=== PATIENT | male | born 1940 | race Caucasian/White ===

== ENCOUNTER 2019-03-01 17:26 | Inpatient (IN) | payer OTHER ==
[~2019-03-01] VITALS: Ht 172.7 cm; Wt 58.6 kg
--- NOTE | ~2019-03-01 | CON ---
[address] [address] CONSULTATION Name: AUDREYBROOKE Room: [address] IN M.R.#: [id number] Admission: 03/01/19 Attend Phys: Roque Ribera MD Discharge: Date of : 42 Report #: [id number] THIS REPORT FOR: //name// CC: Roque Colvin DICTATED BY: Macarena Talamantes [facility] DATE OF SERVICE: 03/04/2019 Please note at the time of this dictation, the patient was seen and physically examined by myself. REASON FOR CONSULTATION: Constipation and colonic thickening noted on CT. HISTORY OF PRESENT ILLNESS: This is a 78-year-old male who was recently hospitalized at [facility] for pneumonia. He was released on Thursday. He had only been home for a few days and started running a fever of 101 and also having feeling a little bit more short of breath as well. The patient also states that he has had a change in his bowel habits over the last several months and he has not had a bowel movement for 5 weeks until last evening after he was given numerous agents to help him go. He states he feels significantly better, but has not been taking anything for his bowels. He denies any bright red blood or hematochezia in his stools. He denies any nausea, vomiting or any abdominal pain at this time. He has a history of acid reflux in the past, but none here recently and no longer taking any medicine for that. He states it has been years ago that he had an EGD and colonoscopy, he believes at [facility]. We will obtain those records. He believes that he did have some colon polyps at that time. ALLERGIES: No known drug allergies. MEDICATIONS: From home include amlodipine, levothyroxine, Flomax, Lipitor, metoprolol, aspirin, clonidine, Ceftin and Flonase. PAST MEDICAL HISTORY: Currently his pneumonia, BPH, hypothyroidism, hypertension. PAST SURGICAL HISTORY: He had a left inguinal hernia repair and he has had bilateral carotids and aortofemoral bypass done in the past. SOCIAL HISTORY: He has a daughter at his bedside. He has recently quit smoking since that he has been hospitalized over the last couple of weeks and he [place] [address] CONSULTATION Name: BROOKE VENTURA Room: [address]#: [id number] Admission: 03/01/19 Attend Phys: Roque Ribera MD Discharge: Date of : 42 Report #: [id number] FAMILY HISTORY: Negative for any GI or female cancers. REVIEW OF SYSTEMS: Twelve-point review of systems is essentially negative except what is mentioned in the HPI. PHYSICAL EXAMINATION: VITAL SIGNS: Temperature 36.6, pulse 85, respirations 20, blood pressure 157/65. HEART: Regular rate and rhythm. LUNGS: Diminished, but clear. ABDOMEN: Soft, positive bowel sounds in all 4 quadrants with no masses or tenderness noted. LABORATORY DATA: Hemoglobin on admission was 11.1, it is 9.2 with white count of 6.2, platelets 195. GFR is 21. ESR is 76. PT is 11.4, INR is 1.1. LFTs are completely normal and he has a CA 19-9 and CEA that are pending. CT of the abdomen and pelvis shows abnormal colonic wall thickening throughout. IMPRESSION: 1. Constipation 5 weeks with a noted change in his bowel habits. 2. Pneumonia, improving. 3. Weight loss of 15 pounds. 4. Loss of appetite. 5. Anemia. 6. History of colon polyps. 7. Chronic kidney disease, stage 4. PLAN: 1. Obtain his records from [facility] regarding his EGD and colon today. 2. Due to his chronic kidney disease stage 4, we will trial him on senna with docusate 1 b.i.d. now that he had a large bowel movement last night to assess and see how he does. 3. Will need a colonoscopy, timing of that will depend on his pneumonia. 4. Further recommendations to be made once Dr. Shankar sees the patient later today. Thank you for allowing us to participate in this patient's care. Please do not hesitate to call with any questions in regard to this consult. By: [id number] Shankar MD /nt
[2019-03-01 17:29] VITALS: BP 189/85
[2019-03-01] MEDS ORDERED: LEVO-T100 MCG PO (17:30)
[2019-03-01] MEDS ORDERED: FLOMAX0.4 MG PO (17:30)
[2019-03-01] MEDS ORDERED: NORVASC10 MG PO (17:30)
[2019-03-01] MEDS ORDERED: ASA81BEC PO (17:31)
[2019-03-01] MEDS ORDERED: LIPITOR 20 MG T20 M1 PO (17:31)
[2019-03-01] MEDS ORDERED: METOPROLOL TART25 MG PO (17:31)
[2019-03-01] MEDS ORDERED: CATAPRES0.1 MG TRANSDERM (17:32)
[2019-03-01] MEDS ORDERED: CEFUROXIME250 MG PO (17:32)
[2019-03-01] MEDS ORDERED: FLONASE 0.05%50 MCG NARES (17:32)
[2019-03-01 17:48] LABS: ABSOLUTE BASOPHILS 0.1 thou/uL (0.0-0.2); ABSOLUTE LYMPHOCYTES 3.7 thou/uL (0.8-5.3); ABSOLUTE MONOCYTES 0.4 thou/uL (0.0-1.2); ABSOLUTE NEUTROPHILS 7.5 thou/uL (1.6-8.1); BASOPHILS 0.8 %; EOSINOPHILS 0.1 %; HEMATOCRIT 32.3 % (42.0-52.0); HEMOGLOBIN 11.1 gm/dL (14.0-18.0); LYMPHOCYTES 31.5 %; MCH 32.3 pg (26.0-34.0); MCHC 34.4 g/dL (28.0-37.0); MCV 93.8 fL (80.0-100.0); MONOCYTES 3.1 %; MPV 8.2 fl. (7.2-11.1); NUCLEATED RBCS 0 /100WBC; PLATELET COUNT* 249 thou/uL (150-400); POLYS 64.5 %; RBC 3.45 mil/uL (4.50-6.00); RDW-CV 13.2 % (10.5-14.5); WBC 11.6 thou/uL (4.0-11.0)
[2019-03-01 17:52] LABS: CALCIUM 10.3 mg/dL (8.5-10.1); CREATININE 2.9 mg/dL (0.6-1.3); POTASSIUM 3.7 mmol/L (3.5-5.1)
[2019-03-01 17:54] LABS: INR 1.1; PROTIME 11.4 Seconds (9.20-11.50)
[2019-03-01 18:00] LABS: URINE BILIRUBIN NEGATIVE (Negative); URINE BLOOD NEGATIVE (Negative); URINE CLARITY CLEAR; URINE COLOR YELLOW; URINE GLUCOSE-RANDOM NEGATIVE (Negative); URINE KETONES NEGATIVE (Negative); URINE LEUKOCYTES-REFLEX NEGATIVE (Negative); URINE NITRITE-REFLEX NEGATIVE (Negative); URINE PROTEIN 1+ (Negative); URINE SPECIFIC GRAVITY 1.015 (1.005-1.030); URINE UROBILINOGEN 0.2 E.U./dl (0.2-1.0)
[2019-03-01 18:05] LABS: ALBUMIN 2.9 g/dL (3.4-5.0); TOTAL BILIRUBIN 0.7 mg/dL (<0.1-1.0); TOTAL PROTEIN 6.9 g/dL (6.4-8.2)
[2019-03-01 18:25] LABS: INFLUENZA A ANTIGEN Negative (Negative); INFLUENZA B ANTIGEN Negative (Negative)
[2019-03-01 21:41] VITALS: BP 168/73
[2019-03-01 22:53] VITALS: BP 139/60
[2019-03-02] VITALS: BP 155/65
[2019-03-02 04:00] VITALS: BP 165/60
--- NOTE | 2019-03-02 05:18 | NUR ---
PATIENT ARRIVED ON UNIT AT APPROX 2200. ALERT AND ORIENTED TIMES FOUR. FALL RISK PRECAUTIONS IN PLACE. ORDERED BEDREST, HAVE BEEN ALLOWING HIM TO STAND AT THE SIDE OF THE BED TO USE HIS URINAL. NO COMPLAINTS OF PAIN OR DISCOMFORT NOTED. FAMILY AT BEDSIDE FOR ADMISSION. CIVIL DIVISION DEPUTY SHERIFF COMPLETED CHARTED. ALL FAMILY QUESTIONS AND CONCERNS ANSWERED. HOURLY ROUNDING COMLETED DOCUMENTED.
[2019-03-02 08:13] VITALS: BP 151/71
--- NOTE | 2019-03-02 09:52 | NUR ---
ASSUMED CARE OF PT THIS AM AROUND 714- PROP WORKER IN PLACE ORDERED, TRACING SR- UPON ASSESSMENT PT NOTED TO BED RESTING IN BED- PT A&O X4- CONTINENT OF B/B- SBA AT BED SIDE FOR TRANSFERS- LCTA, RESP EVEN AND UN-LABORED- VS, O2 SAT 97% ON RA- ABD SOFT/ROUND/NON-TENDER, BS X4 QUADS- LAST BM REPORTED X1 DAY AGO- IV NOTED TO LEFT FA INTACT, IVF INFUSSING PRESCIBED- GOOD PO INTAKE NOTED THIS AM WITH BRAKFAST- NEW CONSULT NOTED THIS AM FOR ID R/T PNA- CALL LIGHT AND PERSONAL BELONGINGS WITH IN REACH- PT DENIES ANY C/O PAIN/COMFORT- HOURLY ROUNDS IN PLACE R/T SAFETY/NEEDS-ALL NEEDS MET AT THIS TIME-WCTM
--- NOTE | 2019-03-02 10:40 | NUR ---
Pt is A&O. Resides at home with his dtr and GUSTAVO, GUSTAVO in room at bedside. Pt is normally independent. Dtr completes cooking and cleaning, Pt continues to drive. No DME. No hx of HH or SNF. Goal is home at dc, no needs anticipated. Following.
--- NOTE | 2019-03-02 11:25 | EKG ---
[place] [address] ELECTROCARDIOGRAM REPORT Name: GARETTMARILINHAL ShoemakerBROOKE Room: [address] ADM IN ..#: [id number] Admission: 03/01/19 Attend Phys: Roque Ribera MD Discharge: Date of : 41 Report #: [id number] THIS REPORT FOR: //name// [facility] ED Test Date: 2019-03-01 Test Time: 17:27:51 Pat Name: BROOKE VENTURA Department: Room: [facility] Gender: M Environmental Compliance Officer: SUKUMAR : 1940 Requested By: Eber Hou Order Number: [id number] MD: Ezra Bain Measurements Intervals [place] Rate: 96 P: 43 WA: 150 QRS: 40 QRSD: 94 T: 73 QT: 394 QTc: 498 Interpretive Statements Sinus rhythm Probable left atrial enlargement No previous ECG available for comparison Electronically Signed On 03-02-2019 11:24:43 CDT by Ezra Bain [email or web address] <ELECTRONICALLY SIGNED> By: Ezra Bain MD, [facility] 03/02/19 1124 26 26 Ezra Bain MD, FACC /EPI
[2019-03-02 12:00] VITALS: BP 158/68
[2019-03-02 16:00] VITALS: BP 160/78
--- NOTE | 2019-03-02 16:26 | 2DMMODE ---
[place] [address] 2 D/M-MODE ECHOCARDIOGRAM Name: BROOKE VENTURA Room: [address] IN [facility]#: [id number] Admission: 03/01/19 Attend Phys: Rouqe Ribera, Discharge: Date of : 42 Date of Service: 03/02/19 1626 Report #: [id number] THIS REPORT FOR: //name// APPROVED REPORT Study performed: 03/02/2019 15:15:32 EXAM: Comprehensive 2D, Doppler, and color-flow Echocardiogram Patient Location: In-Patient Room #: [facility] Status: routine BSA: 1.67 HR: 93 bpm BP: 158/68 mmHg Rhythm: NSR Other Information Study Quality: Good Indications Dyspnea 2D Dimensions IVSd: 10.31 (7-11mm) LVOT Diam: 22.11 (18-24mm) LVDd: 47.85 mm PWd: 10.67 (7-11mm) Ascending Ao: 35.16 (22-36mm) LVDs: 28.43 (25-40mm) Aortic Root: 35.61 mm Volumes Left Atrial Volume (Systole) LA ESV Index: 49.70 mL/m2 Aortic Valve AoV Peak [place].: 2.23 m/s AO Peak Gr.: 19.85 mmHg LVOT Max P.11 mmHg AO Mean Gr.: 11.52 mmHg LVOT Mean P.12 mmHg LVOT Max V: 1.51 m/s AO V2 VTI: 45.57 cm LVOT Mean V: 0.91 m/s JOHN (VTI): 2.53 cm2 LVOT V1 VTI: 30.05 cm AI [place]: 5.57 m/s2 AI PHT: 256.11 ms Mitral Valve E/A Ratio: 0.37 [place] [address] 2 D/M-MODE ECHOCARDIOGRAM Name: BROOKE VENTURA Room: [address] IN .R.#: [id number] Admission: 03/01/19 Attend Phys: Roque Ribera, Discharge: Date of : 42 Date of Service: 03/02/19 1626 Report #: [id number] MV Decel. Time: 194.76 ms MV E Max [place].: 0.63 m/s MV PHT: 56.48 ms MVA (PHT): 3.90 cm2 TDI E/Lateral E': 7.88 E/Medial E': 7.88 Medial E' [place].: 0.08 m/s Lateral E' [place].: 0.08 m/s Pulmonary Valve PV Peak [place].: 1.30 m/s PV Peak Gr.: 6.71 mmHg Left Ventricle The left ventricle is normal size. There is normal LV segmental wall motion. There is normal left ventricular wall thickness. Left ventricular systolic function is normal. The left ventricular ejection fraction is within the normal range. LVEF is 60-65%. Grade I - abnormal relaxation pattern. Right Ventricle The right ventricle is normal size. The right ventricular systolic function is normal. Atria Left atrium is severely dilated. The right atrium size is normal. Aortic Valve Aortic valve leaflets are mildly thickened. Moderate aortic regurgitation. mild aortic valvular stenosis. Mitral Valve The mitral valve is normal in structure. Mild mitral regurgitation. No evidence of mitral valve stenosis. Tricuspid Valve The tricuspid valve is normal in structure. Unable to assess PA pressure. Trace tricuspid regurgitation. Pulmonic Valve The pulmonary valve is normal in structure. Trace pulmonic regurgitation. Great Vessels The aortic root is normal in size. IVC [place] [address] 2 D/M-MODE ECHOCARDIOGRAM Name: BROOKE VENTURA Room: [address] IN [facility]#: [id number] Admission: 03/01/19 Attend Phys: Roque Ribera, Discharge: Date of : 42 Date of Service: 03/02/19 1626 Report #: [id number] collapses >50% with inspiration. Pericardium There is no pericardial effusion. <Conclusion> LVEF is 60-65%. Left atrium is severely dilated. mild aortic valvular stenosis. Moderate aortic regurgitation. Mild mitral regurgitation. <ELECTRONICALLY SIGNED> By: Ezra Bain MD, FACC 03/02/191625 25 25 Ezra Bain MD, FACC /INF
--- NOTE | 2019-03-02 16:31 | NUR ---
PT CURRENTLY RESTING IN BED- MANAGER ANALYTICAL IN PLACE ORERED, TRACING SR- IV TO LEFT FA INTACT AND SL- IV ABT GIVEN THIS SHIFT PRESCRIBED- FAIR PO INTAKE NOTED THIS SHIFT WITH MEALS- UP TO BED SIDE CHAIR THIS SHIFT WITH ASSISTANCE WITH CLEAN UP THIS SHIFT, TOLERATING WELL- PULMONARY/ONCOLOGY/NEURO CONSULTED THIS SHIFT- OT/PT/ST CONSULTED WELL- ECHO ORDERED AND COMPLETED THIS SHIFT PRESCRIBED, RESULTS NOTED WITH 60-65% LVEF- PT DENIES ANY C/O PAIN/DISCOMFORT AT THIS TIME- CALL LIGHT AND PERSONAL BELONGINGS WITH IN REACH- FREQUENT CHECKS IN PLACE R/T SAFETY/NEEDS- ALL NEEDS MET AT THIS TIME-WCTM
[2019-03-02 19:40] VITALS: BP 175/79
[2019-03-03] VITALS: BP 135/72
[2019-03-03 04:00] VITALS: BP 170/71
[2019-03-03 05:02] LABS: ABSOLUTE EOSINOPHILS 0.1 thou/uL (0.0-0.7); ABSOLUTE LYMPHOCYTES 2.2 thou/uL (0.8-5.3); ABSOLUTE MONOCYTES 0.4 thou/uL (0.0-1.2); ABSOLUTE NEUTROPHILS 3.5 thou/uL (1.6-8.1); BASOPHILS 0.2 %; EOSINOPHILS 1.1 %; HEMATOCRIT 26.5 % (42.0-52.0); HEMOGLOBIN 9.2 gm/dL (14.0-18.0); LYMPHOCYTES 35.8 %; MCH 32.5 pg (26.0-34.0); MCHC 34.7 g/dL (28.0-37.0); MCV 93.7 fL (80.0-100.0); MONOCYTES 5.9 %; MPV 7.8 fl. (7.2-11.1); NUCLEATED RBCS 0 /100WBC; PLATELET COUNT* 195 thou/uL (150-400); RBC 2.82 mil/uL (4.50-6.00); RDW-CV 13.4 % (10.5-14.5); WBC 6.2 thou/uL (4.0-11.0)
[2019-03-03 05:23] LABS: CALCIUM 9.8 mg/dL (8.5-10.1); CREATININE 2.9 mg/dL (0.6-1.3); POTASSIUM 3.2 mmol/L (3.5-5.1)
[2019-03-03 05:49] LABS: CALCIUM 9.4 mg/dL (8.5-10.1); PHOSPHORUS* 3.4 mg/dL (2.5-4.9)
--- NOTE | 2019-03-03 06:58 | NUR ---
PT CARE ASSUMED AT 1930. SAT MAINTAINED IN RA. ALERT AND ORIENTED X4. PT SEEMS CONFUSED AT TIMES. HAS URGECY AND FREQUENCY OF URINATION. DENIES PAIN AND SOB. CALL LIGHT WITHIN REACH AND BED IN LOW POSITION. HOURLY ROUNDING DONE FOR PT SAFETY.
[2019-03-03 07:59] VITALS: BP 178/77
--- NOTE | 2019-03-03 08:36 | HEMONC ---
[address] [address] HEMATOLOGY ONCOLOGY NOTE Name: BROOKE VENTURA Room: [address] IN .R.#: [id number] Admission: 03/01/19 Attend Phys: Roque Ribera MD Discharge: Date of : 41 Report #: [id number] THIS REPORT FOR: //name// CC: Roque Ribera [facility] DATE OF SERVICE: 03/02/2019 CLINIC NOTE REQUESTING PHYSICIAN: Roque Ribera MD SUBJECTIVE: A 78-year-old male who has been a heavy smoker most recently in the last few weeks, has been admitted to [facility]. Per the patient, he has been transferred between [facility]; however, he has been having shortness of breath as well as fever and chills. I reviewed his current available records, which I could not see his most recent CT scan. The patient denies any nausea, vomiting, chest pain, headache, blurred vision. Per the records, the patient has been having 15 pounds weight loss in the last 6 months. Again, CT scan showed a lung nodule that indicates malignancy in addition to that pneumonia. REVIEW OF SYSTEMS: All systems were reviewed. It was negative except the above. PAST MEDICAL HISTORY: PVH, dyslipidemia, hypertension, and stage 4 kidney disease. PAST SURGICAL HISTORY: Hernia repair and carotid artery surgery. FAMILY HISTORY: Noncontributory. SOCIAL HISTORY: He has been an active smoker since the age of 19, around 1 pack. No alcohol or drug abuse. ALLERGIES: No known allergies. MEDICATIONS: Per admission list. PHYSICAL EXAMINATION: VITAL SIGNS: Today, temperature is 37.4, pulse 98, respirations 18, blood pressure is 160/78, and SpO2 was 95% on room air. GENERAL: The patient was lying in bed. He was not in acute distress. LUNGS: Decreased breathing sounds bilaterally. No wheezing. No crackles. ABDOMEN: Soft, nontender, nondistended, bowel sounds positive. HEART: Regular rate and rhythm. S1, S2 [place] [address] HEMATOLOGY ONCOLOGY NOTE Name: BROOKE VENTURA Room: [address] IN [facility]#: [id number] Admission: 03/01/19 Attend Phys: Roque Ribera MD Discharge: Date of : 41 Report #: [id number] LABORATORY DATA: WBC 11.6, hemoglobin 11.1, and platelets 249. Sodium is 136, potassium 3.7, BUN 31, creatinine 2.9, calcium is 10.3, AST 33, and ALT is 38. IMAGING: Available chest x-ray showed focal right upper lobe pneumonitis. ASSESSMENT AND PLAN: A 78-year-old male who has been a heavy smoker, has been evaluated because of right upper lobe pneumonia. Per the records, CT scan showed lung nodules. Due to heavy smoking history, I would like to repeat CT scan chest, abdomen, and pelvis. Unfortunately, due to chronic kidney disease, we will avoid contrast. If CT scan showed a significant lung nodule, the next step will be obtaining a biopsy by Interventional Radiology. <ELECTRONICALLY SIGNED> By: Angel Valdovinos MD 03/03/19 0836 1828 [id number] Valdovinos MD /nt
--- NOTE | 2019-03-03 09:23 | CON ---
[address] [address] CONSULTATION Name: PATRICAZENABROOKE Shoemaker Room: [address] IN M.R.#: [id number] Admission: 03/01/19 Attend Phys: Roque Ribera MD Discharge: Date of : 41 Report #: [id number] THIS REPORT FOR: //name// CC: Roque Ribera [facility] DATE OF SERVICE: 03/02/2019 INFECTIOUS DISEASE CONSULTATION ATTENDING PHYSICIAN: Roque Ribera MD REASON FOR EVALUATION: Nonresolving pneumonitis. HISTORY OF PRESENT ILLNESS: Chart reviewed, patient examined. This is a 78-year-old man with known later-stage kidney disease. He is actually just discharged from another facility with diagnosis of right-sided consolidative pneumonitis and had been treated on parenteral and then discharged on oral therapy. He clinically deteriorated within 24-36 hours subsequent to the discharge. He presented to the Emergency Room with complaints of fever and chills, progressive and severe weakness. On evaluation, he was confirmed to have right-sided consolidative process. His influenza antigen was negative. Blood cultures are sterile thus far. At this point, he has not required supplemental oxygen due to adequate saturations. He is quite weak appearing and on questioning, he has had weight loss, progressive memory issues per family. He has had some tremors and a shuffling gait as well. He notably has a long time smoking history. On review of some records from prior hospitalization, there is question of some possible spiculated masses. Differential include malignancy as well as Infectious including bacterial as well as fungal. ALLERGIES: None known. MEDICATIONS: Include levofloxacin, Zosyn. He did get a dose of vancomycin as well, ipratropium and albuterol inhaler. PAST MEDICAL HISTORY: Stage 4 renal dysfunction, large prostate, hypertension. PAST SURGICAL HISTORY: Carotid surgery. SOCIAL HISTORY: Smoked multiple decades. No ethanol. No illicit drug use. FAMILY HISTORY: Noncontributory. REVIEW OF SYSTEMS: Somewhat stoic. Denies significant gastrointestinal-related complaints, [place] [address] CONSULTATION Name: BROOKE VENTURA Room: [address]#: [id number] Admission: 03/01/19 Attend Phys: Roque Ribera MD Discharge: Date of : 41 Report #: [id number] PHYSICAL EXAMINATION: GENERAL: Appears somewhat chronically ill, undernourished. VITAL SIGNS: T-max 101.4, in remission, more recently 98, pulse 98, respirations 19, blood pressure 158/68. SKIN: Warm, dry. HEENT: Normocephalic. Extraocular muscles intact. NECK: Supple. LUNGS: Scattered coarse breath sounds, primarily on the right. Diminished overall. HEART: Regular, some ectopy, did not appreciate a murmur. ABDOMEN: Soft, nontender, no peritoneal signs. GENITOURINARY AND RECTAL: Deferred. LABORATORY DATA: CBC: White count 11.6. H and H 11.1 and 32.3. Platelets of 249. Urinalysis unremarkable. Electrolytes: Sodium 136, potassium 3.7, chloride 99, bicarbonate is 27, anion gap of 10, BUN and creatinine 31 and 2.9. Glucose of 102, calcium 10.3, total protein 6.9, albumin of 2.9. Influenza antigen was negative. Lactic acid 0.6. Chest x-ray, focal right upper lobe pneumonitis. ASSESSMENT AND PLAN: Nonresolving pneumonitis. We will obtain records from previous hospitalization. Certainly raises question of underlying occult process, seemingly has been ill for several months. This may be a complication if it is a profile of aspiration. At this point, he is not overtly toxic. He does appear weak. He is not in significant respiratory distress, so we will continue to monitor him expectantly and may ultimately need some sort of intervention like bronchoscopy. We will try to obtain a previous sputum result. Did discuss in detail with his family. We will follow. <ELECTRONICALLY SIGNED> By: Sekou Blas MD 03/03/19 0923 1558 [id number] Blas MD /nt
--- NOTE | 2019-03-03 09:28 | NUR ---
ASSUMED CARE OF PT THIS AM AROUND 0715- COURT OFFICER IN PLACE ORDERED, TRACING ST- UPON ASSESSMENT PT NOTED TO BE RESTING IN BED- PT A&O X3-4 WITH NOTED FORGETFULLNESS- CONTINENT OF BOWEL AND BLADDER- SBA WITH RW FOR TRANSFERS- DIMINISHED LUNG SOUNDS NOTED, RESP EVEN AND UN-LABORED- VSS, O2 SAT 97% ON RA- ABD SOFT/FLAT/NON-TENDER, BS X4 QUADS- PT REPORTS NO BM IN AT LEAST 1 WEEK- SCHEDULED MIRALAX GIVEN THIS AM- IV NOTED TO LEFT FA INTACT AND SL- IV ABT GIVEN THIS AM PRESCRIBED- K+ NOTED AT 3.2 THIS AM, CURRENTLY BEING REPLACED PER PROTOCOL- CHEST X-RAY COMPLETED THIS AM PRESCIBED, RESULTS NOTED IN MEDITECH- GOOD PO INTAKE NOTED THIS AM WITH BREAKFAST- PT DENIES ANY C/O PAIN/DISCOMFORT AT THIS TIME- CALL LIGHT AND PERSONAL BELONGINGS WITH IN REACH- PT MAKES NEEDS KNOWN- ALL NEEDS MET AT THIS TIME-WCTM
[2019-03-03 11:57] LABS: URINE BILIRUBIN NEGATIVE (Negative); URINE BLOOD 2+ (Negative); URINE CLARITY CLEAR; URINE COLOR YELLOW; URINE GLUCOSE-RANDOM NEGATIVE (Negative); URINE KETONES NEGATIVE (Negative); URINE LEUKOCYTES-REFLEX NEGATIVE (Negative); URINE NITRITE-REFLEX NEGATIVE (Negative); URINE PROTEIN NEGATIVE (Negative); URINE SPECIFIC GRAVITY <= 1.005 (1.005-1.030); URINE UROBILINOGEN 0.2 E.U./dl (0.2-1.0)
[2019-03-03 12:03] LABS: BACTERIA-REFLEX 1-9 Few /HPF (None Seen); CASTS None Seen /LPF (None Seen); MUCUS 0-3 Light strn/LPF (None Seen); SQUAMOUS 0-3 Few /LPF (0-3); URINE WBC-REFLEX 0-5 Rare /HPF (0-5)
[2019-03-03 12:04] LABS: CRYSTALS None Seen /LPF (None Seen); URINE RBC 3-10 Few /HPF (0-2)
[2019-03-03 12:29] VITALS: BP 145/82
--- NOTE | 2019-03-03 13:43 | CON ---
[address] [address] CONSULTATION Name: JOSHHAL ShoemakerBROOKE Room: [address] IN M.R.#: [id number] Admission: 03/01/19 Attend Phys: Roque Ribera MD Discharge: Date of : 42 Report #: [id number] THIS REPORT FOR: //name// CC: Roque Colvin DATE OF SERVICE: 03/03/2019 REQUESTING PHYSICIAN: Dr. Pino. REASON FOR CONSULTATION: Pneumonia, pulmonary nodules. DISCUSSION: The patient is a 78-year-old man with a long history of significant tobacco abuse. He started smoking very young age and smoked anywhere from a few cigarettes per day up to a pack and a half per day. More recently had been cutting down. He was hospitalized earlier this month at [facility]. He was treated for pneumonia there. We currently do not have records from [facility] though his daughter does have some reports that she was able to obtain through the patient portal. He was discharged over this past weekend. Apparently was discharged primarily at his request as he was anxious to get home. He was sent out on oral antibiotics in the form of cefuroxime. However, once he was at home, he was getting up more problems with shortness of breath. Had recurrence of fevers and was noted to be 101.4 in the ED at the time of admission here on 03/01/2019. He has since improved with a T-max in the last 24 hours of 99.3. Apparently, he did have a right upper lobe pneumonia noted there. Blood cultures were negative. Urine for Strep pneumoniae and legionella were negative. He has had the pneumonia vaccine in the past. He does not believe he has ever had any episodes of pneumonia. No history of tuberculosis. No known exposure to TB that he is aware of. He did raise question his grandmother may have been exposed to it, she had come from [place] years ago, but no documentation about that. He has not had any difficulty swallowing. Per his daughter, he did have a swallow evaluation at [facility] and he passed that. He had actually had the onset of his symptoms in early January. Had developed significant hoarseness was having a cough. He had seen Dr. Thayer. He was given some antibiotics and steroids. It was thought he probably had some swelling and fluid issues, possibly related to a virus. Overall, his voice has improved, but he remains relatively hoarse. He has not had any hemoptysis. Do note he had some type of a cyst, which was drained or ablated greater than 10 years ago in his throat. He has not had any recent followup with ENT. He did not have a malignant process there. The patient portal from [facility] [place] [address] CONSULTATION Name: BROOKE VENTURA Room: [address] IN .R.#: [id number] Admission: 03/01/19 Attend Phys: Roque Rbiera MD Discharge: Date of : 42 Report #: [id number] January, he did have a chest x-ray, which was clear of infiltrates. PAST MEDICAL HISTORY: Negative for thromboembolic disease. He does have significant peripheral vascular disease, admits to have had bilateral carotid endarterectomies and aortofemoral bypass done. He also had left inguinal hernia repair earlier this year and also has chronic kidney disease. SOCIAL HISTORY: Long history of significant tobacco abuse is noted. His daughter notes he has not had any cigarettes since he was discharged from [facility]. He does live with family. He is a retired draftsman. FAMILY HISTORY: Negative for thromboembolic disease. REVIEW OF SYSTEMS: ROS was done. Please note positives above. He has been weaker. At times, a little unsteady. No true syncopal episodes. Has hoarseness. Some of this is relatively new onset. However, he denies any difficulty swallowing. Appetite has been only fair. No diarrhea. Recently, he has been constipated. He has had some vague abdominal discomfort. His daughter believes he has lost about 15 pounds in the last month. No lower extremity edema. PHYSICAL EXAMINATION: GENERAL APPEARANCE: We have an elderly man. Does look his age, if not older and appears chronically ill. A little hard of hearing. Voice is somewhat hoarse. HEENT: Head is normocephalic. Sclerae are nonicteric. Mucous membranes are dry. NECK: Negative for adenopathy. Neck veins do look a little full. No cervical or supraclavicular adenopathies noted. Neck muscles well developed. HEART: Regular rate. No S3 is heard. LUNGS: Reveal breath sounds to be diminished. He has a prolonged expiratory phase. Currently, has no wheezing or crackles. No E to A changes. ABDOMEN: Slightly distended. He has a well-healed lower abdominal scar. No hepatosplenomegaly. EXTREMITIES: Lower extremities are negative for edema. No clubbing. Radial pulses are present. Does appear to have some muscle wasting. LABORATORY AND X-RAY FINDINGS: Here at [place], BUN is 30, creatinine of 2.9, potassium is 3.2, and albumin 2.9. ProBNP was almost 2400. Calcium 9.8. Do note, it was 10.3 on admission. Albumin is only 2.9. White blood cell count is 6200, down from 11,600 on admission. Hemoglobin 9.2, hematocrit 26.5. Influenza screen was negative. Blood cultures were sent. Unable to obtain any sputum up until now for cultures. Echocardiogram was done. LV was normal in size with an EF of 60-65%. Left atrium was severely dilated. RV was normal. He did have moderate aortic regurgitation and mild aortic stenosis. He had mild mitral regurgitation. They were unable [place] [address] CONSULTATION Name: BROOKE VENTURA Room: [address] IN [facility]#: [id number] Admission: 03/01/19 Attend Phys: Roque Ribera MD Discharge: Date of : 42 Report #: [id number] Imaging studies were reviewed. He does have a right upper lobe infiltrate. This is confirmed on the CT chest, which was done without contrast yesterday. Posteriorly, right upper lobe, does have a subpleural nodular seen, changes of bronchiectasis. There is some air seen in the right upper lobe subpleural nodular densities. Smaller subpleural nodules were noted. Emphysematous changes were noted. No pleural effusions. CT scan done of his abdomen and pelvis was also done without contrast, which did limit some of the evaluation. Did show some perinephric edema or fluid. There was some abnormal pancolonic bowel wall thickening, thought to be consistent with colitis. IMPRESSION: 1. Right upper lobe infiltrate. Appears to be pneumonia. Did have a clear chest x-ray per report in early January at [facility]. Given his age, smoking history, and underlying emphysematous changes, may be difficult to clear pneumonia. Clinically, doubt tuberculosis. It is possible, may have had some aspiration. He has had some issues with hoarseness, could be a silent aspirator. 2. Pulmonary nodules. Generally are small. Based on report from the prior scan done at [facility], there may actually be some decrease in size of the nodular density in the right upper lobe. This is separate from the infiltrates that were certainly adjacent to that area. This could all be inflammatory. With long smoking history, it is also possible he could have an underlying malignant process. 3. Weight loss. 4. Chronic kidney disease. 5. Known peripheral vascular disease. He has had prior carotid endarterectomies and aorto-fem bypass. 6. Weight loss. Does raise concern for an underlying malignant process. 7. Hoarseness. RECOMMENDATIONS: 1. Agree with broad-spectrum antibiotics. Check sputum if able to collect. We will also check AFB to be complete. Possibly could have underlying MAC. 2. Continue neb treatments. 3. Would consider followup imaging in 2-4 months. 4. Would also benefit from ENT evaluation. That service is not available here at [place], will need to be done as an outpatient to have his upper airway evaluated. 5. I reviewed his films. The areas which are abnormal would not be amenable for CT-guided biopsy due to the very high risk of a pneumothorax. They are also too peripheral for bronchoscopy. <ELECTRONICALLY SIGNED> By: Chelsy Madrigal MD 03/03/19 1343 [id number] Madrigal MD /nt
--- NOTE | 2019-03-03 16:21 | NUR ---
PT CURRENTLY RESTING IN BED- MANAGER [employer] IN PLACE ORDERED, TRACING ST- IV TO LEFT FA INTACT AND SL- GOOD PO INTAKE NOTED THIS SHIFT WITH MEALS- UP WALKING HALLWAY WITH PT THIS SHIFT, TOLERATING WELL- BP MEDICATIONS RESSUMED THIS AM R/T HYPERTENTION- K+ REPLACED WITH PROTOCOL THIS SHIFT WITH REDRAW TO FOLLOW- PT C/O LOWER ABD/PELVIC PAIN THIS SHIFT WITH FIRMNESS NOTED- NOTIFIED AND HERE TO ASSESS WITH ORDERS NOTED FOR OIL ENEMA AND 1/2 BOTTLE OF MAGCITRATE WHICH HAVE BEEN GIVEN PRESCIBED-PT NOTED TO HAVE SMALL HARD/ROUND/BROWN BM RESULT THIS SHIFT- FREQUENT URINATION WITH HESITENCY NOTED THIS SHIFT, UA NOTED IN MEDITECH AND HOME FLOMAX RESTARTED AND GIVEN THIS SHIFT- PT NOTED TO BE IMPULSIVE AND NON-COMPLIANT WITH USING CALL LIGHT FOR NEEDS, DESPITE EDUCATION- CALL LIGHT AND PERSONAL BELONGINGS WITH IN REACH- BED ALARM IN PLACE AND WORKING FOR PT SAFETY/NEEDS- ALL NEEDS MET AT THIS TIME-WCTM
[2019-03-03 18:25] VITALS: BP 160/80
[2019-03-03 19:30] VITALS: BP 165/78
[2019-03-04] VITALS: BP 155/72
[2019-03-04 04:00] VITALS: BP 157/65
--- NOTE | 2019-03-04 06:52 | NUR ---
ASSESSMENT COMPLETED CHARTED. SEE MAR. SEE CHART. VSS. PROGRESSING TOWARDS GOALS. FALL PRECAUTIONS IN PLACE. HOURLY ROUNDING FOR SAFETY.
[2019-03-04 08:00] VITALS: BP 143/67
--- NOTE | 2019-03-04 11:07 | NUR ---
ASSUMED CARE OF PATIENT THIS AM AT 0730. PATIENT IS ALERT AND ORIENTED X 4. HE DENIES PAIN THIS AM. TELE SHOWS SR WITH [facility]. O2 SATS 95% ON ROOM AIR. PATIENT ASSISTED UP TO THE SHOWER THIS AM. DENIA IS TO DD. WILL CONTINUE TO MONITOR.
[2019-03-04 12:52] VITALS: BP 171/73
[2019-03-04 17:15] VITALS: BP 159/71
[2019-03-04 19:40] VITALS: BP 163/70
[2019-03-05] VITALS: BP 149/60
[2019-03-05 04:00] VITALS: BP 124/54
--- NOTE | 2019-03-05 06:54 | NUR ---
ASSESSMENT COMPLETED CHARTED. SEE MAR. SEE CHARTING. VSS. PROGRESSING TOWARDS GOALS. FALL PRECAUTIONS IN PLACE. HOURLY ROUNDING FOR SAFETY.
--- NOTE | 2019-03-05 07:20 | NUR ---
PATIENT CHANGE OF SHIFT, BEDSIDE REPORT GIVEN PATIENT SEEN AT BEDSIDE, IN BED ASLEEP ASSUMED PATIENT CARE
[2019-03-05 08:00] VITALS: BP 149/64
[2019-03-05 11:29] VITALS: BP 149/60
[2019-03-05 15:44] VITALS: BP 147/70
--- NOTE | 2019-03-05 19:25 | CON ---
[address] [address] CONSULTATION Name: AUDREYBROOKE Room: [address] IN M.R.#: [id number] Admission: 03/01/19 Attend Phys: Roque Ribera MD Discharge: Date of : 42 Report #: [id number] THIS REPORT FOR: //name// CC: Roque Ribera [facility] DATE OF SERVICE: 03/02/2019 HISTORY OF PRESENT ILLNESS: This is a 78-year-old male patient who started having some tremor in December. It started spontaneously without any trauma. He also had some shuffling. Then, he developed pneumonia and he was admitted to [facility]. Apparently, he had an MRI that I do not have those results with me, but his workup was unremarkable and that he was dismissed. He is still having some tremor, but he says he is better this morning. He also had a chest x-ray, which showed a question of nodule in the lungs. Apparently, he was fatigued and confused also. He does not know anything which makes it better or worse. REVIEW OF SYSTEMS: Positive for pneumonia. He does have kidney disease. He had a prior carotid disease. He has a history of hypertension. He has a history of hernia repair. This was his relevant 14-point review of system. PAST MEDICAL HISTORY: Positive for some nodule in the lung as well as as described above. FAMILY HISTORY: Negative for stroke. SOCIAL HISTORY: Positive for smoking. PHYSICAL EXAMINATION: Indicate that this patient is alert, responsive, able to follow simple command. His speech looks intact. He was oriented, but his memory was diminished. I do not know what his baseline is. His cranial nerve examination appears mostly unremarkable. He moves all 4 extremities. He said he has a sensation on both sides. His tone looks somewhat increased. He does have mild tremor, but he says it is much worse intermittently. I did not make him walk, but he does have some shuffling. He has no thyroid mass. I could not look at the patient's fundus. Cardiac examinations appear unremarkable. The patient has some scattered rhonchi. His blood pressure is 160/78, respiration is 18, pulse is 98, and temperature is 99.3. LABORATORY DATA: White count is 11.6. IMPRESSION: It is difficult to form in this patient. The main differential is between a perineoplastic process versus developmental Parkinson disease. He just had the recent workup. He probably got aggravated because of encephalopathy. I think we will await the workup [place] [address] CONSULTATION Name: BROOKE VENTURA Room: [address] IN ..#: [id number] Admission: 03/01/19 Attend Phys: Roque Ribera MD Discharge: Date of : 42 Report #: [id number] patient. I think it will be a good idea to give him some more time and instead of repeating all his workup, I will just get the workup from [facility]. Thank you very much for this referral and we will follow this patient along with you. <ELECTRONICALLY SIGNED> By: Justin Alonso MD 03/05/19 [id number] Alonso MD /nt
[2019-03-05 20:00] VITALS: BP 149/68
[2019-03-06] VITALS: BP 170/76
[2019-03-06 04:00] VITALS: BP 147/86
[2019-03-06 05:08] LABS: HEMATOCRIT 28.3 % (42.0-52.0); HEMOGLOBIN 9.5 gm/dL (14.0-18.0); MCH 32.2 pg (26.0-34.0); MCHC 33.5 g/dL (28.0-37.0); RBC 2.95 mil/uL (4.50-6.00); RDW-CV 13.5 % (10.5-14.5); WBC 6.3 thou/uL (4.0-11.0)
--- NOTE | 2019-03-06 05:10 | NUR ---
A&O X4, VSS, MAINTAING O2 SATS ON RA. PT STATED HE WAS TIRED AT START OF THE SHIFT FROM A BUSY PRODUCTIVE DAY. NO C/O PAIN OR DISCOMFORT NOTED BY PT. ALL CURRENT NEEDS HAVE BEEN MET, CURRENTLY ASLEEP IN BED WITH CALL LIGHT WITHIN REACH.
[2019-03-06 05:18] LABS: CALCIUM 9.3 mg/dL (8.5-10.1)
[2019-03-06 08:00] VITALS: BP 125/64
--- NOTE | 2019-03-06 09:16 | NUR ---
CHANGE OF SHIFT, BEDSIDE REPORT GIVEN PATIENT SEEN AT BEDSIDE, IN BED ASLEEP ASSUMED PATIENT CARE
[2019-03-06 12:17] VITALS: BP 144/67
[2019-03-06 16:48] VITALS: BP 159/77
[2019-03-07] VITALS (8 sets, daily range): BP systolic 140–157; BP diastolic 51–76
[2019-03-07 04:47] LABS: ABSOLUTE EOSINOPHILS 0.1 thou/uL (0.0-0.7); ABSOLUTE LYMPHOCYTES 1.8 thou/uL (0.8-5.3); ABSOLUTE MONOCYTES 0.3 thou/uL (0.0-1.2); ABSOLUTE NEUTROPHILS 3.5 thou/uL (1.6-8.1); BASOPHILS 0.2 %; EOSINOPHILS 2.4 %; HEMATOCRIT 27.2 % (42.0-52.0); HEMOGLOBIN 9.2 gm/dL (14.0-18.0); LYMPHOCYTES 31.5 %; MCH 32.4 pg (26.0-34.0); MCHC 33.9 g/dL (28.0-37.0); MCV 95.5 fL (80.0-100.0); MONOCYTES 5.2 %; MPV 7.9 fl. (7.2-11.1); NUCLEATED RBCS 0 /100WBC; PLATELET COUNT* 209 thou/uL (150-400); POLYS 60.7 %; RBC 2.85 mil/uL (4.50-6.00); RDW-CV 13.5 % (10.5-14.5); WBC 5.7 thou/uL (4.0-11.0)
[2019-03-07 04:54] LABS: CALCIUM 9.3 mg/dL (8.5-10.1); CREATININE 3.1 mg/dL (0.6-1.3); MAGNESIUM 1.9 mg/dL (1.8-2.4); POTASSIUM 3.7 mmol/L (3.5-5.1)
--- NOTE | 2019-03-07 05:40 | NUR ---
PT HAS RESTED T/O NIGHT WITHOUT COMPLAINTS. PT DID APPEAR TO BE CONFUSED UPON WAKING AT 0200 BUT WAS QUICLY REDIRECTED. PT PROGRESSING TOWARDS GOALS. MEDS ADMINISTERED VIA EMAR. CALL LIGHT WITHIN REACH
[2019-03-07] MEDS ORDERED: PREDNISONE 10 M10 MG PO (11:20)
[2019-03-07] MEDS ORDERED: LEVAQUIN 750 M750 MG PO (11:24)
[2019-03-07] MEDS ORDERED: AUGMENTIN 875-1 EACH PO (11:24)
--- NOTE | 2019-03-07 12:05 | NUR ---
Pt discharging to home, discussed disposition with Dtr, dtr wanting HH with [facility]. Faxed referral. Dtr to filler picker and transport at 4pm.
[2019-03-07] MEDS ORDERED: ALBUTEROL2.5 MG/31 INH (12:06)
[2019-03-07] MEDS ORDERED: BREO ELLIPTA 21 EACH INH (12:07)
[2019-03-07] MEDS ORDERED: DOXAZOSIN MESYLA4 MG PO (14:05)
[2019-03-07] MEDS ORDERED: MUCINEX600 MG PO (14:23)
[2019-03-07] MEDS ORDERED: SENNA PLUS TAB1 EACH PO (14:25)
--- NOTE | 2019-03-07 17:07 | NUR ---
ASSUMED PT CARE AT 0730. ASSESSMENT COMPLETED CHARTED. ABLE TO MAKE NEEDS KNOWN. UP WITH ASSIST. NO C/O PAIN OR DISCOMFORT. RESTING IN BED MOST OF THE SHIFT. PT DAUGHTER AT BEDSIDE. PT HAD TO HAVE LOZA PUT BACK IN DUE TO RETENTION. DICHARGE APPROVED, DISCHARGE PAPERWORK COMPLETED, SCRIPTS GIVEN AND OTHER MEDS CALLED IN TO THE PHARMACY, LEG BAG IN PLACE, PAPERWORK SIGNED AND NO COMMENTS, QUESTIONS OR CONCERNS NOTED. PT LEFT AT THIS TIME IN A WHEELCHAIR TO DAUGHTERS CAR WITH VOLUNTEERS HELP.
== END 2019-03-07 17:07 | disposition home health service (06) | DRG 178 ==
LOC: M.ERS 17:26 → M.2W 18:44 → M.TBA-ER 18:44 → M.2W 21:51
PROVIDERS: Emergency Medicine; Internal Medicine; Internal Medicine Pulmonary Disease; ADMIT Internal Medicine
DX: J15.6 Pneumonia due to other Gram-negative bacteria (principal); N17.9 Acute kidney failure, unspecified; I50.32 Chronic diastolic (congestive) heart failure; E46 Unspecified protein-calorie malnutrition; I13.0 Hypertensive heart and chronic kidney disease with heart failure and stage 1 through stage 4 chronic kidney disease, or unspecified chronic kidney disease; Z68.1 Body mass index [BMI] 19.9 or less, adult; I73.9 Peripheral vascular disease, unspecified; J43.9 Emphysema, unspecified; K21.9 Gastro-esophageal reflux disease without esophagitis; E03.9 Hypothyroidism, unspecified; K59.00 Constipation, unspecified; D64.9 Anemia, unspecified; E83.52 Hypercalcemia; R33.8 Other retention of urine; K52.9 Noninfective gastroenteritis and colitis, unspecified; Y95 Nosocomial condition; Z87.440 Personal history of urinary (tract) infections; Z79.899 Other long term (current) drug therapy; Z79.82 Long term (current) use of aspirin; Z87.891 Personal history of nicotine dependence; Z95.820 Peripheral vascular angioplasty status with implants and grafts; Z86.010 Personal history of colon polyps